=== PATIENT | male | born 1980 | race Caucasian/White ===

== ENCOUNTER 2023-11-10 11:56 | Emergency (ER) | payer BC ==
[~2023-11-10] VITALS: Ht 175.3 cm; Wt 86.2 kg
[~2023-11-10 11:56] MED LIST: ACET-2634 PO; CITA10TA17 PO; DIPH25CA83 PO; DIVA-74 PO; IBUP-1969 PO; METH-634 PO
[2023-11-10 12:00] VITALS: BP_SYST 132; PULSE 95; RESP 18; TEMP 98.5; O2SAT 97
[2023-11-10 13:03] LABS: CALCIUM 8.7 mg/dL (8.4-11.0); CREATININE 1.34 mg/dL (0.55-1.30); POTASSIUM 4.1 mmol/L (3.5-5.1)
[2023-11-10 13:07] LABS: PROTHROMBIN TIME 9.9 SECS (9.5-12.5)
[2023-11-10 13:08] LABS: ALBUMIN 3.7 g/dL (3.4-4.8); TOTAL BILIRUBIN 0.3 mg/dL (0.0-1.0); TOTAL PROTEIN, SERUM 8.1 g/dL (6.4-8.3)
[2023-11-10 13:22] LABS: INFLUENZA TYPE A Negative (NEGATIVE)
[2023-11-10 13:23] LABS: INFLUENZA TYPE B POSITIVE (NEGATIVE)
[2023-11-10] MEDS: OSELTAMIVIR PHOSPHATE 75 MG CAPSULE PO ONE (14:25)
[2023-11-10] MEDS: ONDANSETRON 4 MG ODT TAB PO ONE (14:26)
[2023-11-10 14:45] VITALS: BP_SYST 132; PULSE 95; RESP 18; TEMP 98.5; O2SAT 97
[2023-11-10] MEDS ORDERED: ONDA-8 TL (14:48)
[2023-11-10] MEDS ORDERED: OSEL75CA PO (14:48)
[2023-11-10] MEDS ORDERED: IBUP-1969 PO (14:48)
== END 2023-11-10 12:00 | disposition home or self-care (01) ==
LOC: SED 11:56
DX: J10.1 Influenza due to other identified influenza virus with other respiratory manifestations (principal); B34.9 Viral infection, unspecified; F31.9 Bipolar disorder, unspecified; Z20.822 Contact with and (suspected) exposure to COVID-19
CPT/HCPCS: 99283; 87426; 80053; 83690; 85610; 85730; 36415; 87804 ×2; Q0162; G9035